=== PATIENT | male | born 1970 | race Caucasian/White ===

== ENCOUNTER 2024-11-03 12:40 | Outpatient (CLI) | payer OTHER, SELFPAY ==
--- OUTSIDE RECORDS SUMMARY | 2024-11-03 12:46 | XMS_ITS | Clinical Summary ---
Author Organization [facility] Address [address] [place] [address] Care Team Providers Care Rehabilitation Therapy Technician Name Role Phone Shazia Loyola MD Primary Care Provider [phone] Allergies Active Allergy Reactions Criticality Noted Date Comments Amitriptyline Diarrhea Low 12/02/2011 Duloxetine Diarrhea Low 12/02/2011 Fentanyl Rash Medium 09/14/2019 Nsaids Diarrhea Low 09/01/2017 Medications pregabalin (LYRICA) 50 MG capsule Take 1 capsule (50 mg total) by mouth 2 (two) times a day. 1 Active MAGNESIUM OR Active Cyanocobalamin (VITAMIN B12 OR) Take by mouth every other day. Active Multiple Vitamin (MULTIVITAMIN ADULT OR) Active acetaminophen (TYLENOL) 500 MG tablet Take 1 tablet (500 mg total) by mouth every 6 (six) hours as needed for Pain. Active lisinopril (PRINIVIL) 10 MG tabletIndications :Essential hypertension Take 1 tablet (10 mg total) by mouth daily. 90 tablet 3 4 Active famotidine (PEPCID) 40 MG tabletIndications :Laryngopharyngea l reflux (LPR) Take 1 tablet (40 mg total) by mouth nightly at bedtime. 90 tablet 1 5 Active Glucosamine 500 MG Cap Active buPROPion XL (WELLBUTRIN XL) 150 MG 24 hr tabletIndications :Mild episode of recurrent major depressive disorder Take 1 tablet (150 mg total) by mouth every morning. 90 tablet 1 5 Active escitalopram (LEXAPRO) 5 MG tabletIndications :Mild episode of recurrent major depressive disorder Take 1 tablet (5 mg total) by mouth daily. 90 tablet 1 Active cyclobenzaprine (FLEXERIL) 10 MG tablet Take 1 tablet (10 mg total) by mouth 3 (three) times daily as needed for Muscle Spasms. Active Active Problems Problem Noted Date Diagnosed Date Primary osteoarthritis of right knee 06/29/2024 Mixed hyperlipidemia 06/29/2024 Family history of colon cancer 06/18/2024 S/P cervical spinal fusion 04/04/2021 Spinal stenosis in cervical region 10/10/2020 Laryngopharyngeal reflux (LPR) 09/14/2019 Pure hypercholesterolemia 02/24/2019 BMI 26.0-26.9,adult 02/24/2019 Excessive daytime sleepiness 02/24/2019 Fatigue, unspecified type 02/24/2019 Chronic renal impairment, stage 3 (moderate) Assessment & Plan (09/03/2018 5:57 AM CDT): This has been stable. Will check routine lab work today to confirm stability. Patient currently avoids NSAIDs. Medication management 08/30/2015 Overview (02/17/2018): Transitioned From: detention use of drug Assessment & Plan (09/03/2018 5:58 AM CDT): Checking routine labs today (see orders) for ongoing medication monitoring. Essential hypertension 12/02/2014 Assessment & Plan (09/03/2018 5:56 AM CDT): Well-controlled on current dosing of lisinopril. Check routine lab work today, plan to continue current treatment. Pernicious anemia 06/15/2012 Assessment & Plan (09/03/2018 5:57 AM CDT): Check CBC today. Mild episode of recurrent major depressive disor eze 05/18/2012 Assessment & Plan (09/03/2018 5:58 AM CDT): Some increased irritability, but difficult to say whether this is transitioning off tapentadol, or failure of his antidepressant. We will continue to monitor, he reports it is not significant to the point of causing significant problems for him. Chronic low back pain 01/16/2012 Assessment & Plan (09/03/2018 5:56 AM CDT): Somewhat increased, as pain management is transitioning him off his current opioid doses. Continue to monitor. Resolved Problems Problem Noted Date Diagnosed Date Resolved Date Screening for colon cancer 06/18/2024 0 06/28/2024 Screening for colon cancer 06/18/2024 0 10/18/2024 Chronic, continuous use of opioids 08/30/2015 09/29/2019 Assessment & Plan (09/03/2018 5:56 AM CDT): See chronic low back pain, above. Encounters Date Type Department Care Team Description 10/05/2024 Telephone [facility] - [address] [place] [id number] Sina Lima MD Prior Authorization (Colonoscopy 76990) 10/05/2024 MyWants Message Enc [address] [place] [address] [facility] Provider colonoscopy 10/05/[address] [place] [address] Sina Lima MD Medication 10/01/2024 Orders Only [facility] Family & Internal Medicine [facility] [address] [place] [address] Agnes Narvaez from Last 3 Months Immunizations Immunization Administration Dates Next Due Fluzone 6 Months+ Quad (0.5 mL Prefilled Syringe) 04/09/2022 Fluzone Adult - >Age 3 (Pref illed Syringe) 03/31/2020(Deferred: Patient Refused) Influenza Adult (Generic) 11/28/2023(Deferred: P atient Refused) MODERNA COVID-19 (12+) MRNA, LNP-S, PF, 100 MCG/ 0.5 ML DOSE 09/21/2020,08/22/2020 MODERNA COVID-19 (IT RISK ADVISOR GERARD OLIVERIO), MRNA, LNP-S, PF, 50 MCG/ 0.25 ML DOSE 11/23/2021 Tdap (Adacel) 04/09/2022 Family History Medical History Relation Comments Cancer Father Hypertension Father Colon Cancer Maternal Aunt Alzheimers Maternal Grandmother Cancer Maternal Grandmother Cancer Mother Hypertension Mother Heart Disease Sister Relation Status Comments Father Alive Maternal Aunt Maternal Grandmother Mother Alive Sister Social History Tobacco Use Types Packs/Day Years Used Date Smoking Tobacco: Former Cigarettes Smokeless Tobacco: Former Chew Tobacco Cessation:Counseling Given: No Alcohol Use Standard Drinks/Week Comments Yes 0 (1 standard drink = 0.6 oz pur e alcohol) occasional AUDIT-C Answer Date Recorded Frequency of Alcohol Consumption Never 02/17/2018 Average Number of Drinks Not on file 018 Frequency of Binge Drinking Not on file 09/2017 PHQ-2 Answer Date Recorded Patient Health Questionnaire-2 Score 0 06/18/2024 Education Answer Date Recorded What is the highest level of school you have completed or the highest degree you have received? Some college, no degree 02/17/2018 Sex and Gender Information Value Date Recorded Sex Assigned at Male 03/30/2018 1:24 PM CAMP HOUSEKEEPER Legal Sex Male 6:14 PM CDT Gender Identity Male 03/30/2018 1:24 PM CAMP HOUSEKEEPER Sexual Orientation Straight 03/30/2018 1: 24 PM CAMP HOUSEKEEPER Last Filed Vital Signs Vital Sign Reading Time Taken Comments Blood Pressure 116/75 07/01/2024 10:31 AM CDT Pulse 59 07/01/2024 10:31 AM CDT Temperature 36.4 C (97.6 F) 06/28/2024 3:03 PM CDT Respiratory Rate 16 06/28/2024 3:03 PM CDT Oxygen Saturation 98% 07/01/2024 10:31 AM CDT Inhaled Oxygen Concentration - - Weight 95.3 kg (210 lb) 06/28/2024 3:03 PM CDT Height 193 cm (6' 4) 06/28/2024 3:03 PM CDT Body Mass Index 25.56 06/28/2024 3:03 PM CDT Plan of Treatment Upcoming Encounters Date Type Department Care Team (Late st Contact Info) Description 11/05/2024 11:13 AM CDT Hospital Encounter [facility] [address] [place] [address] Sina Lima MD [address] [address] 11/05/2024 11:13 AM CDT Anesthesia Event [facility] [address] [place] [address] Homa Benitez, [address] [place] [address] 11/05/2024 11:13 AM CDT - 11/05/2024 11:40 AM CDT Surgery [facility] [address] [place] [address] Sina Lima MD [address] [address] COLONOSCOPY SCREENING 12/02/2024 9:40 AM CDT Office Visit [facility] - [address], [address] [place] [address] Dewayne York, DPNeli [address] [place] [address] 01/17/2025 3:20 PM CDT Office Visit [facility] Family & Internal Medicine [address] [address] [place] [address] [id number] Scheduled Procedures Name Priority Associated Diagnoses Date/Ti me COLONOSCOPY SCREENING Screening for colon cancer Family history of colon cancer 11/05/2024 11:13 AM CDT Health Maintenance Due Date Last Done Comments Colorectal Cancer Screening Colonoscopy (10 Years) 1972 Annual Physical 1975 Hepatitis B Vaccines (1 of 3 - 19+ 3-dose series) 1991 Pneumococcal Vaccine: 50+ Years (1 of 1 - PCV) 2022 Zoster Vaccines (1 of 2) 2022 COVID-19 Vaccine (4 - 2023-2 5 season) 2023 11/23/2021, 09/21/2020, 08/22/2020 DTaP, Tdap and Td Vaccines ( 2 - Td or Tdap) 04/09/2032 04/09/2022 PHQ-2 (Physician [place]) Completed 06/18/2024 Hepatitis C Completed 07/02/2024 Meningococcal B Vaccine Aged Out No l onger eligible based on patient's age to complete this topic Meningococcal Vaccine Aged Out No maryjo dalia eligible based on patient's age to complete this topic RSV Immunizations Under 20 Months Aged Out No longer eligible b ased on patient's age to complete this topic Goals Goal Patient Goal Type Associated Problems Recent Progress Patient-Stated? Author Autogenerat ed Goal Care Plan Autogenerated Problem No Imani Shell, KARINA Medical Devices Implanted Type Area Coke Drawer Hand Device Identifier Shelf Expiration Date Model / Serial / Lot Stimulator Implant- [id number] Implanted:Qty: 1 on 03/19/2019 Stimulator Implant Spine Thoracic [employer] [id number] / / Description:MR CONDITIONAL A T 1.5 T ONLY, NEED REMOTE TO TURN OFF STIMULATION AND CHECK FULL BODY ELIGIBILITY, MAX WHOLE BODY RANULFO 2 W/KG OR LESS, HEAD RANULFO 3.2 W/KG OR LESS, MAX TOTAL SCAN TIME OF 30 MINUTES IN A 90 MINUTE WINDOW Procedures Procedure Name Priority Date/Time Associated Diagnosis Comments HEPATITIS C ANTIBODY Routine 07/02/2024 3:04 PM CDT Need for hepatitis C screening test from Last 3 Months or Most Recently Relevant to Health Maintenance Results * HEPATITIS C AB ([facility] ONLY) (07/02/2024 3:04 PM CDT) HEPATITIS C AB NON-REACTI VE NON-REACTI VE 07/02/2024 9:08 PM CDT [facility] 07/02/2024 3:04 PM CDT Shazia Loyola MD LABORATORY Final Result [facility] [address] [place] [address], from Last 3 Months or Most Recently Relevant to Health Maintenance Additional Health Concerns Active Problems Noted Date Diagnosed Date Autogenerated Problem 07/28/2024 Insurance MEDICARE [employer] [facility] Care Teams Rehabilitation Therapy Technician Relationship Specialty [place] [address] [facility] [address] [place] [address] PCP - General FAMILY PRACTICE 06/13/21
--- OUTSIDE RECORDS SUMMARY | 2024-11-03 12:46 | XMS_ITS | Clinical Summary ---
Author Organization [facility] Address [address] [place] [address] Care Team Providers Care Gamma Operator Name Role Phone Mayur Christiansen MD Primary Care Provide r Allergies Active Allergy Reactions Criticality Noted Date Comments Amitriptyline Diarrhea Low 12/02/2011 Duloxetine Diarrhea Low 12/02/2011 Fentanyl Rash,Hypotension Medium 09/14/2019 Nsaids (Non-Steroidal Anti-Inflammatory Drug) Diarrhea Low 09/01/2017 Medications buPROPion HCL (WELLBUTRIN XL) 150 mg Extended Release 24 hour tablet Take 150 mg by mouth daily in the morning. 1 Active escitalopram oxalate (LEXAPRO) 5 mg tablet Take 5 mg by mouth daily. 0 Active famotidine (PEPCID) 40 mg tablet Take 40 mg by mouth daily. 0 Active lisinopriL (PRINIVIL) 10 mg tablet Take 10 mg by mouth daily after lunch. 0 Active omeprazole (PriLOSEC) 20 mg Capsule, Delayed Release(E.C.) Take 20 mg by mouth 2 times daily. 9 Active pregabalin (LYRICA) 75 mg Capsule Take 75 mg by mouth every 12 hours. 0 Active L. acidophilus/L. rhamnosus (PROBIOTIC ORAL) Take 1 Tablet by mouth daily. Active calcium carbonate/vitam in D3 (CALCIUM WITH VITAMIN D ORAL) Take 1 Tablet by mouth daily. Active naloxone (NARCAN) 4 mg/spray [place], Non-Aerosol EMERGENCY USE ONLY: Administer 1 spray (4 mg) in one nostril one time. May repeat in alternating nostrils every 2-3 min until responsive or EMS arrives. 2 Each 3 1 Active armodafiniL (NUVIGIL) 150 mg tablet Take 150 mg by mouth 1 time daily as needed for Other (See Comment). 1 Active OMEGA-3 FATTY ACIDS-FISH OIL ORAL Take 1 Capsule by mouth daily. Active multivitamin (DAILY-KYAW) tablet Take 1 Tablet by mouth daily. Active Active Problems Problem Noted Date Diagnosed Date Dysphagia 04/23/2021 Mood disorder 04/23/2021 Essential hypertension 04/23/2021 Spinal stenosis in cervical region 10/10/2020 Myelopathy, spondylogenic, cervical 10/10/2020 S/P cervical spinal fusion NESTOR (acute kidney injury) Leukocytosis Family History Medical History Relation Name Comments Cancer Father Cancer Mother Relation Name Status Comments Father Mother Social History Tobacco Use Types Packs/Day Years Used Date Smoking Tobacco: Former Cigarettes Q uit: 2012 Smokeless Tobacco: Never Alcohol Use Standard Drinks/Week Comments Yes 0 (1 standard drink = 0.6 oz pur e alcohol) rarely Sex and Gender Information Value Date Recorded Sex Assigned at Not on file Legal Sex Male 3:51 PM CDT Gender Identity Not on file Sexual Orientation Not on file Last Filed Vital Signs Vital Sign Reading Time Taken Comments Blood Pressure 134/84 04/24/2021 4:45 PM SEASONING SPRAYER Pulse 81 04/24/2021 4:45 PM SEASONING SPRAYER Temperature 36.8 C (98.2 F) 04/24/2021 4:45 PM SEASONING SPRAYER Respiratory Rate 18 04/24/2021 4:45 PM SEASONING SPRAYER Oxygen Saturation 100% 04/24/2021 4:45 PM SEASONING SPRAYER Inhaled Oxygen Concentration - - Weight 93 kg (205 lb) 07/20/2021 2:38 PM CDT Height 193 cm (6' 4) 07/20/2021 2:38 PM CDT Body Mass Index 24.95 07/20/2021 2:38 PM CDT Plan of Treatment Health Maintenance Due Date Last Done Comments HEPATITIS B VACCINES (1 of 3 - 19+ 3-dose series) 1991 COLORECTAL SCREENING 2017 Colorectal Cancer Screening 2017 FIT-DNA Q 3 years 2017 FIT/FOBT Q 1 year 2017 Flex Sig/CT Colonography Q 5 years 2017 ZOSTER VACCINE (1 of 2) 2022 COVID-19 Vaccine ( season) 2023 11/23/2021, 09/21/2020, 08/22/2020 INFLUENZA VACCINE (#1) 2024 04/09/2022 DTAP/TDAP/TD VACCINES (2 - T d or Tdap) 04/09/2032 04/09/2022 Medical Devices Implanted Type Area Frame Catcher Device Identifier Shelf Expiration Date Model / Serial / Lot Filler Bone Stimulan Paste 5cc W/Beads 620-005 - [id number] Implanted:Qty: 1 on 04/23/2021 by Sanjay Conde MD at [facility] Biological N/A: Spine Cervical Posterior BI[employer] 11/12/2023 620-005 / / [id number] Description: Requisition: [id number] Hemostatic Surgiflo 8ml W/ Thrombin 299 - [id number] Implanted:Qty: 1 on 01/09/2021 by Sanjay Conde MD at [facility] Hemostatic N/A: Neck J[employer]J- [employer] 299 / / Description:item add rf Hemostatic Surgifoam Sz12-7 1971 - [id number] Implanted:Qty: 1 on 01/09/2021 by Sanjay Conde MD at [facility] Hemostatic N/A: Neck J&J- ETH[employer]ON ENDO[employer] 1971 / / Description:item add rf Hemostatic Surgiflo 8ml W/ Thrombin 299 - [id number] Implanted:Qty: 1 on 04/23/2021 by Sanjay Conde MD at [facility] Hemostatic N/A: Neck J&J- [employer] 08/11/2022 2994 / / [id number] Hemostatic Surgifoam Sz100 1974 - [id number] Implanted:Qty: 1 on 04/23/2021 by Sanjay Conde MD at [facility] Hemostatic N/A: Neck J&J- [employer] 06/14/2024 1975 / / [id number] Hemostatic Surgiflo 8ml W/ Thrombin 299 - [id number] Implanted:Qty: 1 on 04/23/2021 by Sanjay Conde MD at [facility] Hemostatic N/A: Spine Cervical Posterior J&J- [employer] 11/12/2022 2994 / / [id number] Plate Zevo Ac 2lvl Ti 39mm [id number] - [id number] Implanted:Qty: 1 on 01/09/2021 by Sanjay Conde MD at [facility] Plate N/A: Neck [employer]- SOFAMOR DANEK [id number] / NA / NA Description:load # [id number] date 12/27/2020 Osito Infinity 3.5x80mm Precut [id number] - [id number] Implanted:Qty: 2 on 04/23/2021 by Sanjay Conde MD at [facility] Osito N/A: Spine Cervical Posterior [employer]OR [employer]ANEK [id number] / / Description:Load number: [id number] Sterilized: GERARD REQ#[id number] Screw Zevo [address] St 3.5x15mm [id number] - Sna Implanted:Qty: 4 on 01/09/2021 by Sanjay Conde MD at [facility] Screw N/A: Neck [employer] [id number] / NA / NA Description:load 3 [id number] date 12/27/2020 Set Screw Infinity Occip Upper Thor Sys [id number] - [id number] Implanted:Qty: 8 on 04/23/2021 by Sanjay Conde MD at [facility] Screw N/A: Spine Cervical Posterior [employer]K [id number] / / Description:Load number: [id number] Sterilized: Apr.11 Screw Infinity Ma 3.5x16mm [id number] - [id number] Implanted:Qty: 3 on 04/23/2021 by Sanjay Conde MD at [facility] Screw N/A: Spine Cervical Posterior [employer]ANEK [id number] / / Description:Load number: [id number] Sterilized: Screw Infinity Ma 3.5x12mm [id number] - [id number] Implanted:Qty: 1 on 04/23/2021 by Sanjay Conde MD at [facility] Screw N/A: Spine Cervical Posterior [employer] [id number] / / Description:Load number: [id number] Sterilized: Screw Infinity 3.5x20mm Ma [id number] - [id number] Implanted:Qty: 2 on 04/23/2021 by Sanjay Conde MD at [facility] Screw N/A: Spine Cervical Posterior [employer]K [id number] / / Description:Load: [id number] Sterilized: Screw Infinity 3.5x24mm Ma [id number] - [id number] Implanted:Qty: 2 on 04/23/2021 by Sanjay Conde MD at [facility] Screw N/A: Spine Cervical Posterior [employer]OR [employer]ANEK [id number] / / Description:Load number: [id number] Sterilized: Putty Payette Dbm 2.5ml [id number] - [id number] Implanted:Qty: 1 on 01/09/2021 by Sanjay Conde MD at [facility] Tissue N/A: Neck [employer] 11/08/2023 [id number] / [id number] / NA Description:Requisition: [id number] Allograft Magnifuse Pc [id number] - [id number] Implanted:Qty: 1 on 04/23/2021 by Sanjay Conde MD at [facility] Tissue N/A: Spine Cervical Posterior [employer] 11/06/2022 [id number] / [id number] / Description: Requisition:[id number] Centerpiece [id number] 13mm B-Size Implanted:Qty: 1 on 01/09/2021 by Sanjay Conde MD at [facility] N/A: Neck [employer] SOF[employer]OR [employer]ANEK [id number] / NONE / NONE Description:item add rf load#: [id number] sterilized: 01-08-21 GERARD REQ#[id number] Insurance MEDICARE PART A AND B [facility] BENEFIT PLANS RX [facility] [employer] Advance Directives For more information, please contact: [phone] * Full Code (Latest Code Status on File) Date Activated Date Inactivated Comments 04/23/2021 8:49 AM 04/24/2021 8:10 PM * Full Code Date Activated Date Inactivated Comments 01/10/2021 8:47 AM 01/10/2021 3:37 PM Care Teams Gamma Operator Relationship Specialty Start Date End Date Mayur Christiansen MD PCP - General Internal Medicine 10/10/20
--- OUTSIDE RECORDS SUMMARY | 2024-11-03 12:46 | XMS_ITS | Encounter Summary ---
Author Organization [facility] Address [address] [place] [address] Care Team Providers Care Glass Washer Name Role Phone Mayur Christiansen MD Primary Care Provider [phone] Shazia Loyola MD Primary Care Provider [phone] Encounter Details Date Type Department Care Team (Late st Contact Info) Description 05/08/2021 MyChart Message Enc [facility] Family & Internal Medicine [address] [address] Mayur Christiansen MD [address] [facility] [address] [address] Ferritin levels. Social History Tobacco Use Types Packs/Day Years Used Date Smoking Tobacco: Former Smokeless Tobacco: Never Alcohol Use Standard Drinks/Week Comments No 0 (1 standard drink = 0.6 oz pur e alcohol) AUDIT-C Answer Date Recorded Frequency of Alcohol Consumption Never 02/17/2018 Average Number of Drinks Not on file 018 Frequency of Binge Drinking Not on file 09/2017 PHQ-2 Answer Date Recorded PHQ-2 Score - If the patient scores above 3, please move on to questions 3-9 2 10/03/2020 Education Answer Date Recorded What is the highest level of school you have completed or the highest degree you have received? Some college, no degree 02/17/2018 Sex and Gender Information Value Date Recorded Sex Assigned at Male 03/30/2018 1:24 PM TV NEWS DIRECTOR Legal Sex Male 6:14 PM CDT Gender Identity Male 03/30/2018 1:24 PM TV NEWS DIRECTOR Sexual Orientation Straight 03/30/2018 1: 24 PM TV NEWS DIRECTOR COVID-19 Exposure Response Date Recorded In the last month, have you been in contact with someone who was confirmed or suspected to have Coronavirus / COVID-19? No / Unsure 04/18/2021 4:14 PM TV NEWS DIRECTOR documented as of this encounter Progress Notes * Mayur Christiansen MD - 05/09/2021 7:31 AM CST I recommend rechecking ferritin level in 90 days. Could check ESR and CRP at the same time. Thanks! NEWS DIRECTOR * Mayur Christiansen MD - 05/08/2021 10:13 AM CST So ferritin does reflect iron storage, but also can be elevated in the states of inflammation. We did not check any inflammatory markers at the time of his blood draw. We can check sed rate and CRP to more fully assess any ongoing inflammation. If those are normal, would consider consultation with hematology. Typically phlebotomy helps reduce iron levels. NEWS DIRECTOR documented in this encounter Plan of Treatment Upcoming Encounters Date Type Department Care Team (Late st Contact Info) Description 11/05/2024 11:13 AM CDT Hospital Encounter [facility] [address] [place] [address] Sina Lima MD [address] [address] 11/05/2024 11:13 AM CDT Anesthesia Event [facility] [address] [place] [address] Homa Benitez, [address] [place] [address] 11/05/2024 11:13 AM CDT - 11/05/2024 11:40 AM CDT Surgery [facility] [address] [place] [address] Sina Lima MD [address] [address] COLONOSCOPY SCREENING 12/02/2024 9:40 AM CDT Office Visit [facility] - [place] [address] [place] [address], 2nd [place] [phone] Dewayne York, IZZY [address] [place] [address] 01/17/2025 3:20 PM CDT Office Visit [facility] Family & Internal Medicine [facility] [address] [place] [address] [place] [address] [facility]. [address] [place] [id number] Scheduled Procedures Name Priority Associated Diagnoses Date/Ti me COLONOSCOPY SCREENING Screening for colon cancer Family history of colon cancer 11/05/2024 11:13 AM CDT documented as of this encounter Visit Diagnoses Not on filedocumented in this encounter Additional Health Concerns Assessment Noted Time PHQ-9 Depression Total Score: 6 10/04/19 21 3:36 PM CDT documented as of this encounter Care Teams Glass Washer Relationship Specialty Start Date End Date Mayur Christiansen MD PCP - General INTERNAL MEDICINE 01/21/18 06/12/21 [place] [address] [facility]. [address] [place], [place] [id number] PCP - General FAMILY PRACTICE 06/13/21 documented as of this encounter
--- OUTSIDE RECORDS SUMMARY | 2024-11-03 12:46 | XMS_ITS | Clinical Summary ---
Author Organization [facility] at the [facility] Office Center Address [address] [place] [address] Care Team Providers Care Ore Miner Blasting Name Role Phone Shazia Loyola MD Primary Care Provider [phone] Allergies Active Allergy Reactions Criticality Noted Date Comments Amitriptyline Diarrhea Low 12/02/2011 Duloxetine Diarrhea Low 12/02/2011 Fentanyl Rash Medium 09/14/2019 Nsaids (Non-Steroidal Anti-I nflammatory Drug) Diarrhea Low 09/01/2017 Medications lisinopriL (PRINIVIL,ZESTR IL) 10 mg tablet 0 Active pregabalin (LYRICA) 75 mg capsule 0 Active buPROPion XL (WELLBUTRIN XL) 150 mg 24 hr tablet Take 150 mg by mouth daily Active omeprazole (PriLOSEC) 20 mg capsule Take 1 capsule (20 mg total) by mouth 2 (two) times a day 60 capsule 3 0 Active escitalopram (LEXAPRO) 5 mg tablet 0 Active cyanocobalamin, vitamin B-12, 5,000 mcg tablet, sublingual Place 1 mcg under the tongue daily 6 Active ferrous sulfate 325 mg (65 mg of elemental iron) tablet Take 1 tablet by mouth daily 5 Active folic acid (FOLVITE) 1 mg tablet Take 1 tablet by mouth daily 6 Active mupirocin (BACTROBAN) 2 % ointment APPLY SMALL AMOUNT TO AFFECTED AREA(S) 3 TIMES DAILY FOR 7 DAYS 1 Active triamcinolone (KENALOG) 0.1 % cream Apply to affected area sparingly twice daily until redness is gone. 0 Active famotidine (PEPCID) 40 mg tabletIndicatio ns:Laryngophary ngeal reflux (LPR) Take 1 tablet (40 mg total) by mouth nightly 30 tablet 3 1 Active omeprazole (PriLOSEC) 20 mg capsuleIndicati ons:Laryngophar yngeal reflux (LPR) Take 1 capsule (20 mg total) by mouth 2 (two) times a day 60 capsule 3 1 Active Active Problems Problem Noted Date Diagnosed Date Ear itching 07/06/2024 Laryngopharyngeal reflux (LPR) 09/14/2019 Chronic cough 09/14/2019 Surgical History Surgery Date Site/Laterality Comments LUMBAR FUSION L5/S1 fusion SPINAL CORD STIMULATOR IMPLANT CERVICAL FUSION C5-C7 fusion CERVICAL FUSION C4-T1 fusion Medical History Medical History Date Comments Anxiety Depression Hypertension GERD (gastroesophageal reflux disease) Tinnitus Family History Medical History Relation Name Comments Cancer Father Cancer Maternal Grandmother Cancer Mother Relation Name Status Comments Father Maternal Grandmother Mother Social History Tobacco Use Types Packs/Day Years Used Date Smoking Tobacco: Former Cigarettes Q uit: 2014 Smokeless Tobacco: Never Sex and Gender Information Value Date Recorded Sex Assigned at Not on file 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 Gender Identity Not on file Sexual Orientation Not on file Obstetrics History Last Filed Vital Signs Vital Sign Reading Time Taken Comments Blood Pressure 137/96 03/19/2019 7:28 AM ROUNDHOUSE FIRER/FIREMAN Pulse 66 03/19/2019 7:28 AM ROUNDHOUSE FIRER/FIREMAN Temperature 36.7 C (98 F) 07/08/2024 9:45 AM CDT Respiratory Rate - - Oxygen Saturation 99% 03/19/2019 7:28 AM ROUNDHOUSE FIRER/FIREMAN Inhaled Oxygen Concentration - - Weight 86.2 kg (190 lb) 07/08/2024 9:45 AM CDT Height 193 cm (6' 4) 07/08/2024 9:45 AM CDT Body Mass Index 23.13 07/08/2024 9:45 AM CDT Plan of Treatment Health Maintenance Due Date Last Done Comments Colon Cancer Screening-Colonoscopy 1972 Depression Screening 1972 Hepatitis C Screening 1972 Prostate Cancer Screening-PSA 1972 Hepatitis B Screening 1990 Regular Well Visit/Exam 18-64 1990 Zoster Vaccine (1 of 2) 2022 Covid-19 Vaccine (4 - 2023-2 5 season) 2023 11/23/2021, 09/21/2020, 08/22/2020 Influenza Vaccine (Season Ended) 2024 04/09/2022 DTaP/Tdap/Td Vaccine (2 - Td or Tdap) 04/09/2032 04/09/2022 Pneumococcal vaccine <65 Aged Out No longer eligible based on patient's age to complete this topic Insurance MEDICARE [facility] [id number] Care Teams Ore Miner Blasting Relationship Specialty [place] [phone] [place] [address] PCP - General Family Medicine 06/29/24
--- OUTSIDE RECORDS SUMMARY | 2024-11-03 12:46 | XMS_ITS | Referral Summary ---
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 Gender Identity Not on file Sexual Orientation Not on file Last Filed Vital Signs Vital Sign Reading Time Taken Comments Blood Pressure 137/96 03/19/2019 7:28 AM FRUIT BAR MAKER Pulse 66 03/19/2019 7:28 AM FRUIT BAR MAKER Temperature 36.7 C (98 F) 07/08/2024 9:45 AM CDT Respiratory Rate - - Oxygen Saturation 99% 03/19/2019 7:28 AM FRUIT BAR MAKER Inhaled Oxygen Concentration - - Weight 86.2 kg (190 lb) 07/08/2024 9:45 AM CDT Height 193 cm (6' 4) 07/08/2024 9:45 AM CDT Body Mass Index 23.13 07/08/2024 9:45 AM CDT Plan of Treatment Not on file Insurance MEDICARE [facility] [id number] Care Teams Shock Absorber Installer Relationship Specialty [place] [phone] [place] [id number] PCP - General Family Medicine 06/29/24
--- OUTSIDE RECORDS SUMMARY | 2024-11-03 12:46 | XMS_ITS | Encounter Summary ---
Author Organization [facility] Address [address] [place] [address] Care Team Providers Care Cutter Operator Tile Name Role Phone Mayur Christiansen MD Primary Care Provider [phone] Shazia Loyola MD Primary Care Provider [phone] Encounter Details Date Type Department Care Team (Latest Contact Info) Description 02/17/2018 Abstract [facility] Leandro Iqbal MD Social History Tobacco Use Types Packs/Day Years Used Date Smoking Tobacco: Former Smokeless Tobacco: Never Alcohol Use Standard Drinks/Week Comments No 0 (1 standard drink = 0.6 oz pur e alcohol) AUDIT-C Answer Date Recorded Frequency of Alcohol Consumption Never 02/17/2018 Average Number of Drinks Not on file 018 Frequency of Binge Drinking Not on file 09/2017 Education Answer Date Recorded What is the highest level of school you have completed or the highest degree you have received? Some college, no degree 02/17/2018 Sex and Gender Information Value Date Recorded Sex Assigned at Male 03/30/2018 1:24 PM UNLOADER OPERATOR Legal Sex Male 6:14 PM CDT Gender Identity Male 03/30/2018 1:24 PM UNLOADER OPERATOR Sexual Orientation Straight 03/30/2018 1: 24 PM UNLOADER OPERATOR documented as of this encounter Functional Status documented as of this encounter Plan of Treatment Upcoming Encounters Date Type Department Care Team (Late st Contact Info) Description 11/05/2024 11:13 AM CDT Hospital Encounter [facility] [address] [place] [address] Sina Lima MD [address] [address] 11/05/2024 11:13 AM CDT Anesthesia Event [facility] [address] [place] [address] Homa Benitez, [facility] [address] [facility] [address] [place] [address] 11/05/2024 11:13 AM CDT - 11/05/2024 11:40 AM CDT Surgery [facility] [address] [place] [address] Sina Lima MD [address] [place] [id number] COLONOSCOPY SCREENING 12/02/2024 9:40 AM CDT Office Visit [facility] [address] [place] [address] Dewayne York, DPM [address] [place], [place] [address] 01/17/2025 3:20 PM CDT Office Visit [facility] Family & Internal Medicine [facility] [address] [place] [address] Shazia Loyola MD [address] [place] [address] [place] [id number] Scheduled Procedures Name Priority Associated Diagnoses Date/Ti me COLONOSCOPY SCREENING Screening for colon cancer Family history of colon cancer 11/05/2024 11:13 AM CDT documented as of this encounter Visit Diagnoses Not on filedocumented in this encounter Care Teams Cutter Operator Tile Relationship Specialty Start Date End Date Mayur Christiansen MD PCP - General INTERNAL MEDICINE 01/21/18 06/12/21 [place] [address] [address] [facility] [address] [place] [address] PCP - General FAMILY PRACTICE 06/13/21 documented as of this encounter
--- NOTE | 2024-11-03 14:00 | NEURO_ITS ---
Impression: # History of spinal fusion complains of decreased sensory in lower extremities. ? # No responses could be obtained ? # Needle/EMG exam abnormal with decreased motor unit potentials though no fibs or myotonia. ? # Findings compatible with severe neuropathy With superimposed involvement of the spinal level cannot be ruled out. Nerve Conduction Studies ?Stim Site NR Peak (ms) P-T Amp (?V) Site1 Site2 Delta-P (ms) Dist (cm) Luis Alberto (m/s) Left Sup Fibular Anti Sensory (Ant Lat Mall)??? NO RESPONSE 14 cm NR 14 cm Ant Lat Mall 16.0 Right Sup Fibular Anti Sensory (Ant Lat Mall)??? NO RESPONSE 14 cm NR 14 cm Ant Lat Mall 16.0 Left Sural Anti Sensory (Lat Mall)??? NO RESPONSE Calf NR Calf Lat Mall 16.0 Right Sural Anti Sensory (Lat Mall)??? NO RESPONSE Calf NR Calf Lat Mall 16.0 ?Stim Site NR Onset (ms) O-P Amp (mV) Site1 Site2 Delta-0 (ms) Dist (cm) Luis Alberto (m/s) Left Peroneal Motor (Vastus Med)??? NO RESPONSE Ankle NR Popit Ankle 0.0 Popit NR Right Peroneal Motor (Vastus Med)??? NO RESPONSE Ankle NR Popit Ankle 0.0 Popit NR Left Tibial Motor (Abd Calixto Brev)??? NO RESPONSE Ankle NR Knee Ankle 0.0 Knee NR Right Tibial Motor (Abd Calixto Brev)??? NO RESPONSE Ankle NR Knee Ankle 0.0 Knee NR Electromyography ?Side Muscle Nerve Root Ins Act Fibs Amp Dur Recrt Comment Right AntTibialis Dp Br Fibular L4-5 Nml Nml Nml Nml +1 Right Gastroc Tibial S1-2 Nml Nml Nml Nml +1 Right Fibularis Long Sup Br Fibular L5-S1 Nml Nml Nml Nml +1 Right Flex Dig Long Tibial L5-S2 Nml Nml Nml Nml +1 Right Ext Dig Brev Dp Br Fibular L5, S1 Nml Nml Nml Nml +1 Right QuadratusFem QuadFemoris L4-5, S1 Nml Nml Nml Nml +1 Left AntTibialis Dp Br Fibular L4-5 Nml Nml Nml Nml +1 Left Gastroc Tibial S1-2 Nml Nml Nml Nml +1 Left Fibularis Long Sup Br Fibular L5-S1 Nml Nml Nml Nml +1 Left Flex Dig Long Tibial L5-S2 Nml Nml Nml Nml +1 Left Ext Dig Brev Dp Br Fibular L5, S1 Nml Nml Nml Nml +1 Left QuadratusFem QuadFemoris L4-5, S1 Nml Nml Nml Nml +1
== END 2024-11-03 12:41 | disposition home or self-care (01) ==
LOC: ANHNEURO 12:42
PROVIDERS: Visit Provider Nurse Practitioner Family
DX: M54.16 Radiculopathy, lumbar region (principal)
CPT/HCPCS: 95886; 95911